=== PATIENT | male | born 1965 | race Caucasian/White ===

== ENCOUNTER 2024-04-14 13:15 | Emergency (ER) | payer OTHER ==
[~2024-04-14] VITALS: Ht 172.7 cm; Wt 87.5 kg
[2024-04-14 15:32] LABS: HEMATOCRIT 47.7 % (39.0-48.0); HEMOGLOBIN 16.3 g/dL (13-16.00); MEAN CELL VOLUME 91.8 fL (80.0-100.00); MEAN CORPUSCULAR HEMOGLOBIN 31.3 pg (27.00-32.0); MEAN CORPUSCULAR HGB CONC 34.1 g/dl (32.0-36.0); PLATELET COUNT 180 K/uL (150-450); RED CELL DISTRIBUTION WIDTH 14.3 % (11.5-14.5)
[2024-04-14 16:00] LABS: ALBUMIN 3.4 gm/dL (3.4-5.0); BILIRUBIN TOTAL 0.52 mg/dL (0.3-1.2); CALCIUM 8.9 mg/dL (8.5-10.1); CREATININE SERUM 1.05 mg/dL (0.70-1.30); GFR 72.05; GLOBULINA 3.2 G/DL (2.4-3.5); POTASSIUM 4.03 mEq/L (3.5-5.1); TOTAL PROTEIN 6.6 gm/dL (6.4-8.2)
[2024-04-14] MEDS ORDERED: OSEL75CA PO (17:09)
== END 2024-04-14 18:38 | disposition home or self-care (01) ==
LOC: ER 13:15
DX: J10.1 Influenza due to other identified influenza virus with other respiratory manifestations (principal); J39.9 Disease of upper respiratory tract, unspecified; Z20.822 Contact with and (suspected) exposure to COVID-19